=== PATIENT | male | born 1970 | race Caucasian/White ===

== ENCOUNTER 2022-06-12 09:41 | Outpatient (CLI) | payer OTHER, SELFPAY ==
--- OUTSIDE RECORDS SUMMARY | 2022-06-12 09:49 | XMS_ITS ---
:1970 External Reference #:[id number] Author Care Team Providers Name Role Phone Mariposa Ellis Primary Care Provider Unavailable Allergies Code Code System Name Reaction Severity Status Onset NKDA ? Medications Name Status Start Date Stop Date ? ? ivermectin 3 mg tablet Active ? Not avail able TAKE NINE AND HALF TABLETS ONE DOSE BY MOUTH ON DAY 1 AND AGAIN ON DAY 3 AND THEN TAKE NINE AND HALF TABLETS ONE DOSE BY MOUTH EVERY WEEK lisinopril 10 mg tablet Active ? Not avai lable TAKE 1 TABLET BY MOUTH DAILY multivitamin Active ? Not available Pepcid Active ? Not available resveratrol-quercetin Active ? Not availa ble Vitamin D3 Active ? Not available 2000IU zinc gluconate Active ? Not available 50mg Problems None recorded. Procedures Date Name Performed by ? ? Hernia Repair Information not avai lable Results Lab Results None recorded. Past Encounters Encounter Date Diagnosis Provider 03/24/2021 Viral Screening; Morbid Obesity Mariposa Ellis MD: [id number] [place] [address], Ph. Social History Tobacco Smoking Status Never Smoker Vaccine List None recorded. Plan of Care Reminders Provider Appointments None recorded. ? ? Lab None recorded. ? ? Referral None recorded. ? ? Procedures None recorded. ? ? Surgeries None recorded. ? ? Imaging None recorded. ? ? Vitals Height Weight BMI Blood Pressure 6 ft 305 lbs 41.4 kg/m2 (1) 141/121 mm[ Hg] (2) 157/99 mm[Hg ]
[2022-06-12 13:50] LABS: Chloride* 105 mmol/L (96-114)
[2022-06-12 13:51] LABS: Potassium* 4.2 mmol/L (3.6-5.1); Sodium* 140 mmol/L (135-149)
[2022-06-12 13:53] LABS: Bilirubin Total* 1.1 mg/dL (0.1-1.5); Carbon Dioxide* 25 mmol/L (20-32); Cholesterol* 234 mg/dL (90-199); Creatinine* 1.2 mg/dL (0.5-1.5); Estimated Glomerular Filt Rate 73 ml/min; Total Protein* 7.7 g/dL (6.0-8.3)
[2022-06-12 13:54] LABS: Alanine Aminotransferase* 27 U/L (4-50); Alkaline Phosphatase* 73 U/L (40-150); Aspartate Amino Transferase* 30 U/L (12-35); Blood Urea Nitrogen* 17 mg/dL (7-30); Calcium* 9.8 mg/dL (8.4-10.6); Glucose* 93 mg/dL (60-115); HDL Cholesterol* 36 mg/dL (>=40); LDL Cholesterol Calculated 163 mg/dL (<100); Triglycerides* 174 mg/dL (40-149)
== END 2022-06-12 09:42 | disposition home or self-care (01) ==
PROVIDERS: PCP Family Medicine; Visit Provider Physician Assistant Medical
DX: E03.9 Hypothyroidism, unspecified (principal); I10 Essential (primary) hypertension; E78.5 Hyperlipidemia, unspecified; E66.9 Obesity, unspecified
CPT/HCPCS: 80053; 80061; 84443

== ENCOUNTER 2022-07-24 07:01 | Outpatient (CLI) | payer OTHER, SELFPAY | END 2022-07-24 07:02 | disposition home or self-care (01) | LOC: OP CLINIC 07:04 | PROVIDERS: PCP Physician Assistant Medical; Visit Provider Surgery | DX: Z12.11 Encounter for screening for malignant neoplasm of colon (principal); K63.5 Polyp of colon; Z80.0 Family history of malignant neoplasm of digestive organs | CPT/HCPCS: 45385; 88305; 99153; J2250; J3010 ==

== ENCOUNTER 2022-09-11 07:31 | Outpatient (CLI) | payer OTHER, SELFPAY | END 2022-09-11 07:32 | disposition home or self-care (01) | LOC: NFLDREF 09-13 06:43 | PROVIDERS: PCP Physician Assistant Medical; Referring Provider Physician Assistant Medical; Visit Provider Physician Assistant Medical | DX: E78.5 Hyperlipidemia, unspecified (principal) | CPT/HCPCS: 80061; 84450; 84460 ==

== ENCOUNTER 2023-07-31 11:23 | Outpatient (CLI) | payer OTHER, SELFPAY | END 2023-07-31 11:24 | disposition home or self-care (01) | LOC: NFLDREF 08-01 08:55 | PROVIDERS: PCP Physician Assistant Medical; Referring Provider Physician Assistant Medical; Visit Provider Physician Assistant Medical | DX: E78.5 Hyperlipidemia, unspecified (principal); I10 Essential (primary) hypertension; E53.8 Deficiency of other specified B group vitamins; E03.9 Hypothyroidism, unspecified; R20.0 Anesthesia of skin | CPT/HCPCS: 80053; 80061; 82607; 84443 ==

== ENCOUNTER 2024-05-19 09:49 | Outpatient (CLI) | payer OTHER, SELFPAY ==
--- OUTSIDE RECORDS SUMMARY | 2024-05-23 02:28 | XMS_ITS | Clinical Summary ---
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 [facility] Allergies No known active allergies Medications Medication Sig Dispensed Refills Start Date End Date Status atorvastatin (LIPITOR) 20 MG tablet Take 1 Tablet (20 mg) by mouth daily. 11/12/2023 Active levothyroxine (SYNTHROID) 50 MCG tablet Take 1 Tablet (50 mcg) by mouth daily. 11/12/2023 Active lisinopril (ZESTRIL) 10 MG tablet Take 1 Tablet (10 mg) by mouth daily. Active Social History Tobacco Use Types Packs/Day Years Used Date Smoking Tobacco: Never Alcohol Use Standard Drinks/Week Comments Not Asked 0 (1 standard drink = 0.6 oz pur e alcohol) Sex and Gender Information Value Date Recorded Sex Assigned at Not on file Gender Identity Not on file Sexual Orientation Not on file Last Filed Vital Signs Vital Sign Reading Time Taken Comments Blood Pressure 150/92 12/13/2008 3:06 PM CDT Pulse 74 12/13/2008 3:06 PM CDT Temperature 36.9 C (98.4 F) 12/13/2008 3:06 PM CDT Respiratory Rate 20 12/13/2008 3:06 PM CDT Oxygen Saturation - - Inhaled Oxygen Concentration - - Weight 131.5 kg (290 lb) 12/13/2008 3:06 PM CDT Height 181 cm (5' 11.25) 12/13/2008 3:06 PM CDT Body Mass Index 40.16 12/13/2008 3:06 PM CDT Plan of Treatment Upcoming Encounters Date Type Department Care Team (Late st Contact Info) Description 02/03/2025 8:15 AM CDT Appointment [facility] [address] [place], [place] [address] Christina Amador MD [facility] [place], [place] [address] Health Maintenance Due Date Last Done Comments Colon Cancer Screening Plan Due 1970 Hep C Screening (Preventive Services) 1970 PSA Screening Discussion 1970 HIV Screening (Preventive Services) 1986 Adult Preventive Visit 02/12/1988 HepB (1) 1989 Cholesterol 2005 Zoster/Shingles (1 of 2) 02/12/2020 COVID-19 Vaccine (1 - 2023-2 5 season) 2024 Influenza (#1) 2024 04/18/2010 DTaP/Tdap/Td (2 - Tdap) 07/30/2029 07/30/2019 HepA Aged Out No longer eligi ble based on patient's age to complete this topic Hib Aged Out No longer eligi ble based on patient's age to complete this topic IPV (Polio) Aged Out No longer eligi ble based on patient's age to complete this topic RSV Aged Out No longer eligi ble based on patient's age to complete this topic MCV4 Aged Out No longer eligi ble based on patient's age to complete this topic Pneumococcal Aged Out No longer eligi ble based on patient's age to complete this topic Care Teams 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
== END 2024-05-19 09:50 | disposition home or self-care (01) ==
LOC: NFLDREF 05-23 02:27
PROVIDERS: PCP Physician Assistant Medical; Referring Provider Physician Assistant Medical; Visit Provider Physician Assistant Medical
DX: E78.2 Mixed hyperlipidemia (principal); I10 Essential (primary) hypertension; E03.9 Hypothyroidism, unspecified; R20.0 Anesthesia of skin
CPT/HCPCS: 80053; 80061; 82306; 82607; 84443